=== PATIENT | male | born 1980 | race Caucasian/White ===

== ENCOUNTER → 2018-02-23 | Outpatient (CLI) | payer OTHER ==
[~2018-02-23] MED LIST: Augmentin 875-1 EACH PO; CRUTCH3 USE; CYCL10 PO; HYDACE5 PO; IBUP800 PO; Naprosyn500 MG PO; Norco 5-325 Ta1 EACH PO; OXYACE7.5T PO; PSEU120ER PO; Percocet 5-3251 EACH PO; Zofran Odt4 MG SL
[2018-02-23 16:46] LABS: BASOPHILS ABSOLUTE AUTO 0.05 K/mm3 (0.00-0.23); BASOPHILS PERCENT AUTO 0 % (0-2); EOSINOPHILS ABSOLUTE AUTO 0.06 K/mm3 (0.00-0.68); EOSINOPHILS PERCENT AUTO 1 % (0-6); Hematocrit 42.2 % (37.0-53.0); Hemoglobin 14.2 g/dL (13.5-17.5); IMMATURE GRAN ABSOLUTE AUTO 0.04 K/mm3 (0.00-0.10); IMMATURE GRAN PERCENT AUTO 0 % (0-1); LYMPHOCYTES ABSOLUTE AUTO 1.64 K/mm3 (0.84-5.20); LYMPHOCYTES PERCENT AUTO 14 % (21-46); MONOCYTES ABSOLUTE AUTO 0.67 K/mm3 (0.16-1.47); MONOCYTES PERCENT AUTO 6 % (4-13); Mean Corpuscular HGB 31.1 pg (26.0-34.0); Mean Corpuscular HGB Conc 33.6 g/dL (31.5-36.5); Mean Corpuscular Volume 93 fL (80-100); Mean Platelet Volume 10.2 fL (9.1-12.4); NEUTROPHILS PERCENT AUTO 80 % (41-73); Platelet Count 315 K/mm3 (150-400); RDW Coefficient Variation 13.3 % (11.7-14.2); RDW Standard Deviation 45.1 fL (35.1-46.3); Red Blood Cell Count 4.56 M/mm3 (4.30-5.90); White Blood Cell Count 12.16 K/mm3 (4.00-11.30)
[2018-02-23 17:06] LABS: Alanine Aminotransfer (ALT/SGP 18 U/L (12-78); Albumin, Blood 3.9 g/dL (3.4-5.0); Albumin/Globulin Ratio 1.1 (0.8-1.8); Alk Phos 72 U/L (40-126); Anion Gap 13 mmol/L (6-16); Aspartate Aminotrans (AST/SGOT 17 U/L (12-37); Bilirubin, Total 0.4 mg/dL (0.1-1.0); Blood Urea Nitrogen 14 mg/dL (8-24); Bun/Creatinine Ratio 15.6 (12.0-20.0); CO2, Blood 26 mmol/L (21-32); Calcium, Blood 9.1 mg/dL (8.5-10.1); Chloride, Blood 102 mmol/L (98-108); Globulin, Blood 3.6 g/dL (2.2-4.0); Glomerular Filtration Rate >60 (60-); Glucose, Blood 103 mg/dL (70-99); Potassium, Blood 3.9 mmol/L (3.5-5.5); Sodium, Blood 141 mmol/L (136-145); Total Protein, Blood 7.5 g/dL (6.4-8.2)
[2018-02-23 17:11] LABS: Troponin I <0.017 ng/mL (0.000-0.040)
== END | disposition home or self-care (01) ==
LOC: LAB EV 16:38 → LAB SHORT 16:38
PROVIDERS: Physician Assistant
DX: R07.81 Pleurodynia (principal)
CPT/HCPCS: 80053; 84484; 85025; 85379

== ENCOUNTER 2022-06-12 19:39 | Emergency (ER) | payer OTHER ==
[~2022-06-12] VITALS: Ht 182.9 cm; Wt 99.8 kg
[2022-06-12 20:05] LABS: BASOPHILS ABSOLUTE AUTO 0.04 K/mm3 (0.00-0.23); BASOPHILS PERCENT AUTO 0 % (0-2); EOSINOPHILS ABSOLUTE AUTO 0.05 K/mm3 (0.00-0.68); EOSINOPHILS PERCENT AUTO 1 % (0-6); Hematocrit 44.1 % (37.0-53.0); Hemoglobin 14.8 g/dL (13.5-17.5); IMMATURE GRAN ABSOLUTE AUTO 0.02 K/mm3 (0.00-0.10); IMMATURE GRAN PERCENT AUTO 0 % (0-1); LYMPHOCYTES ABSOLUTE AUTO 3.64 K/mm3 (0.84-5.20); LYMPHOCYTES PERCENT AUTO 40 % (21-46); MONOCYTES PERCENT AUTO 4 % (4-13); Mean Corpuscular HGB 30.7 pg (26.0-34.0); Mean Corpuscular HGB Conc 33.6 g/dL (31.5-36.5); Mean Corpuscular Volume 92 fL (80-100); Mean Platelet Volume 9.9 fL (9.1-12.4); NEUTROPHILS ABSOLUTE AUTO 4.89 K/mm3 (1.96-9.15); NEUTROPHILS PERCENT AUTO 54 % (41-73); Platelet Count 345 K/mm3 (150-400); RDW Coefficient Variation 13.2 % (11.7-14.2); RDW Standard Deviation 44.8 fL (35.1-46.3); Red Blood Cell Count 4.82 M/mm3 (4.30-5.90); White Blood Cell Count 9.04 K/mm3 (4.00-11.30)
[2022-06-12 20:18] LABS: Base Excess Venous -3.6 mmol/L; Bicarbonate Venous 22.5 mmol/L (24.0-30.0); PCO2 Venous 28.9 mmHg (38-42); pH Blood Venous 7.46 (7.34-7.37)
[2022-06-12 20:41] LABS: Albumin, Blood 3.9 g/dL (3.4-5.0); Bilirubin, Total 0.6 mg/dL (0.1-1.0); Bun/Creatinine Ratio 17.3 (12.0-20.0); Calcium, Blood 9.2 mg/dL (8.5-10.1); Creatinine, Blood 0.93 mg/dL (0.60-1.20); Globulin, Blood 3.8 g/dL (2.2-4.0); Potassium, Blood 3.4 mmol/L (3.5-5.5); Total Protein, Blood 7.7 g/dL (6.4-8.2)
== END 2022-06-12 22:09 | disposition home or self-care (01) ==
LOC: ER 19:39
PROVIDERS: Emergency Medicine; Student in an Organized Health Care Education/Training Program
DX: R06.02 Shortness of breath (principal); T36.3X5A Adverse effect of macrolides, initial encounter; R06.1 Stridor; F17.210 Nicotine dependence, cigarettes, uncomplicated
CPT/HCPCS: 36415; 70360; 71045; 80053; 82803; 83605; 83880; 85025; 93005; 93010; 94644; 94664; 96374; 96375; 99285-25; J0171; J1100; J1200; J2060; J7030

== ENCOUNTER 2024-12-18 22:07 | Emergency (ER) | payer OTHER ==
[~2024-12-18] VITALS: Ht 193 cm; Wt 102.1 kg
[2024-12-18 23:06] VITALS: BP 136/75
[2024-12-19] MEDS ORDERED: RX Prepack 6 Tabs Oxycodone 5mg UD ONE (01:00)
[2024-12-19] MEDS ORDERED: HYDROmorphone HCl/Pf 1MG SYR IM ONE (01:00)
[2024-12-19] MEDS ORDERED: OXYC5 PO (01:02)
== END 2024-12-19 01:42 | disposition home or self-care (01) ==
LOC: ER 22:07
DX: S52.124A Nondisplaced fracture of head of right radius, initial encounter for closed fracture (principal); W09.0XXA Fall on or from playground slide, initial encounter
CPT/HCPCS: 29105; 73080; 96372-59; 99283-25; A9270; J1171